=== PATIENT | male | born 1965 | race African-American/Black ===

== ENCOUNTER 2020-01-01 14:27 | Emergency (ER) | payer OTHER ==
[~2020-01-01] VITALS: Ht 167.6 cm; Wt 74.8 kg
[2020-01-01] MEDS ORDERED: VENLAFAXINE (14:48)
[2020-01-01] MEDS ORDERED: ROSUVASTATIN CA20 MG (14:48)
[2020-01-01] MEDS ORDERED: [UNRECOGNIZED DRUG - OTHER] (14:49)
== END 2020-01-01 18:56 | disposition home or self-care (01) ==
LOC: ER 14:27 → EDBD 14:27 → ER 14:40
DX: N43.2 Other hydrocele (principal); N50.811 Right testicular pain